=== PATIENT | female | born 1990 | race Caucasian/White ===

== ENCOUNTER 2022-05-07 08:47 | Outpatient (CLI) | payer SELFPAY | END 2022-05-07 08:48 | disposition home or self-care (01) | LOC: CSHLAB 08:47 | PROVIDERS: ATTEND Advanced Practice Midwife | DX: Z20.822 Contact with and (suspected) exposure to COVID-19 (principal) | CPT/HCPCS: 87811 ==

== ENCOUNTER 2022-05-10 06:00 | Inpatient (IN) | payer OTHER, SELFPAY ==
[~2022-05-10 06:00] MED LIST: Butorphanol Tartrate 1 MG/ML VIAL SLOW IVP PRN; Carboprost 250 MCG/ML AMP IM PRN; Diphenoxylate HCl/Atropine Tablet PO PRN; HYDROcodone/Acetaminophen 5/325 mg Tablet PO PRN; Ibuprofen 800 MG TAB PO PRN; Lactated Ringer's 1,000 ML IV SCH; Lidocaine 1% (PF) 30 ML VIAL SC PRN; Methylergonovine 0.2 MG/ML VIAL IM PRN; Misoprostol 200 MCG TAB PR PRN; NS w/ Oxytocin 30 units 500 ML IV SCH; Ondansetron PF 4 MG/2 ML Vial IVP PRN; Promethazine HCl 25 MG/ML VIAL IM PRN; hydrALAZINE 20 MG/ML VIAL SLOW IVP PRN
[2022-05-10 06:59] VITALS: BMI 35.5
[2022-05-10 07:31] LABS: Hemoglobin 10.5 g/dL (12.0-15.5); Mean Corpuscular HGB CONC 33.3 g/dL (32.0-36.0); Mean Corpuscular Hemoglobin 28.2 pg (27.0-33.0); Mean Corpuscular Volume 84.7 fl (81.6-98.3); Mean Platelet Volume 10.7 fl (7.4-10.4); Platelet Count 243 10x3/uL (150-450); RBC Distribution Width 14.4 % (11.5-14.5); Red Blood Cell (RBC) Count 3.72 10x6/uL (3.90-5.03); White Blood Cell (WBC) Count 8.5 10x3/uL (3.5-10.5)
[2022-05-10] MEDS ORDERED: Lidocaine 2% MPF 10 ML AMP (For Epidural Use) ONE (08:00)
[2022-05-10] MEDS ORDERED: Bupivacaine 0.25% HCL 30 ML VIAL ONE (08:00)
[2022-05-10 08:18] LABS: Hep B Surf Ag Non-Reactive S/CO (NonReactive); Syphilis Antibody Nonreactive (Nonreactive); Syphilis Antibody Index 0.12 S/CO (<1.00 Non-Reactive)
[2022-05-10 08:28] LABS: HBSAg Index 0.24 S/CO (0-0.99)
[2022-05-10] MEDS ORDERED: Fentanyl 2 mcg/Bup 0.1% Cadd 100 ML ONE (09:03)
[2022-05-10] MEDS ORDERED: Promethazine HCl 25 MG/ML VIAL IM PRN (09:40)
[2022-05-10] MEDS ORDERED: Lactated Ringer's 500 ML IV PRN (09:40)
[2022-05-10] MEDS ORDERED: ePHEDrine Sulfate 50 MG/10 ML VIAL SLOW IVP PRN (09:40)
[2022-05-10] MEDS ORDERED: Naloxone HCl 0.4 mg/ml Vial IVP PRN ×2 (09:40)
[2022-05-10] MEDS ORDERED: Ondansetron PF 4 MG/2 ML Vial IVP PRN (09:40)
[2022-05-10] MEDS ORDERED: Acetaminophen 325 MG TAB PO PRN (09:40)
[2022-05-10] MEDS ORDERED: Moisturizing Cream (Eucerin) 113 GM JAR TOP PRN (09:40)
[2022-05-10] MEDS ORDERED: diphenhydrAMINE 50 MG/ML VIAL IVP PRN (09:40)
[2022-05-10] MEDS ORDERED: Communication Order-Pharmacy FS SCH (09:45)
[2022-05-10] MEDS ORDERED: Fentanyl 2 mcg/Bupivacaine 0.1% Cassette 100 ML EPIDURAL SCH (09:45)
[2022-05-10] MEDS ORDERED: Benzocaine-Menthol 82.5 ML CAN TOP PRN (14:43)
[2022-05-10] MEDS ORDERED: Boostrix 0.5 ML (Tdap) VIAL IM ONE (14:43)
[2022-05-10] MEDS ORDERED: NS w/ Oxytocin 30 units 500 ML IV SCH (14:43)
[2022-05-10] MEDS ORDERED: Preparation H Ointment 28 GM TUBE PR PRN (14:43)
[2022-05-10] MEDS ORDERED: Bisacodyl 10 MG SUPP PR PRN (14:43)
[2022-05-10] MEDS ORDERED: Misoprostol 200 MCG TAB VAG PRN (14:43)
[2022-05-10] MEDS ORDERED: hydrALAZINE 20 MG/ML VIAL SLOW IVP PRN (14:43)
[2022-05-10] MEDS ORDERED: Milk Of Magnesia 30 ML UDCUP PO PRN (14:43)
[2022-05-10] MEDS ORDERED: Lanolin Ointment 7 GM TUBE TOP PRN (14:43)
[2022-05-10] MEDS ORDERED: HYDROcodone/Acetaminophen 5/325 mg Tablet PO PRN ×2 (14:43)
[2022-05-10] MEDS: Ferrous Sulfate 325 MG TAB PO SCH (15:28)
[2022-05-10] MEDS: Docusate 100 MG CAP PO SCH (20:39)
[2022-05-10] MEDS: Ibuprofen 800 MG TAB PO SCH (21:52)
[2022-05-11] MEDS: Ibuprofen 800 MG TAB PO SCH ×2 (05:17→13:31)
[2022-05-11] MEDS: Docusate 100 MG CAP PO SCH (08:12)
[2022-05-11] MEDS: Ferrous Sulfate 325 MG TAB PO SCH (08:12)
[2022-05-11] MEDS ORDERED: Prenatal Vitamin 1 TAB PO SCH (09:00)
[2022-05-11 11:24] VITALS: BP 122/71; TEMP 98.1
== END 2022-05-11 15:07 | disposition home or self-care (01) | DRG 807 ==
LOC: CSHLD 06:22 → CSHPP 14:30
PROVIDERS: ADMIT Obstetrics & Gynecology; ATTEND Obstetrics & Gynecology
PROC: 3E0334Z Introduction of Serum, Toxoid and Vaccine into Peripheral Vein, Percutaneous Approach (ICD-10-PCS; principal; 2022-05-10)
PROC: 10E0XZZ Delivery of Products of Conception, External Approach (ICD-10-PCS; 2022-05-10)
PROC: 0HQ9XZZ Repair Perineum Skin, External Approach (ICD-10-PCS; 2022-05-10)
DX: O26.893 Other specified pregnancy related conditions, third trimester (principal); Z37.0 Single live birth; Z67.41 Type O blood, Rh negative; O70.0 First degree perineal laceration during delivery; Z3A.39 39 weeks gestation of pregnancy
CPT/HCPCS: 36415; 51702; 85027; 85461; 86780; 86850; 86870; 86900; 86901; 87340; 90384; 96372; J2590; J7120; S0020

== ENCOUNTER 2024-03-25 21:58 | Emergency (ER) | payer SELFPAY ==
[2024-03-26] MEDS ORDERED: Ipratropium/Albuterol 3 ML NEB ONE (00:19)
== END 2024-03-26 02:22 | disposition home or self-care (01) ==
LOC: CSHERS 21:58
DX: J20.9 Acute bronchitis, unspecified (principal)
CPT/HCPCS: J7620